=== PATIENT | female | born 1985 | race Caucasian/White ===

== ENCOUNTER 2016-06-29 23:35 | Emergency (ER) | payer SELFPAY ==
[2016-06-30] MEDS ORDERED: Oxycodone/Acetaminophen 5/325 mg Tab PO STA (00:04)
--- NOTE | 2016-06-30 00:04 | C.PDOC ---
History Of Present Illness 30 y/o female with chronic h/o of anxiety and Sciatica presents to ER requesting percocet and valium. Pt states she usually takes these meds but ran out since she's been here 1 month for her fathers longer than planned. Denies new injury, weakness, numbness or incontinence of bladder and bowel Time Seen by Provider: 06/29/16 23:59 Chief Complaint (Nursing): Lower Extremity Problem/Injury History Per: Patient History/Exam Limitations: no limitations Onset/Duration Of Symptoms: Other (chronic ) Current Symptoms Are (Timing): Still Present Severity: Moderate Past Medical History Vital Signs: Last Vital Signs Temp 98.5 F 06/29/16 23:40 Pulse 110 H 06/29/16 23:40 Resp 16 06/29/16 23:40 BP 135/89 06/29/16 23:40 Pulse Ox 99 06/30/16 00:18 - Medical History PMH: Anxiety Family History: States: Unknown Family Hx - Social History Hx Alcohol Use: No Hx Substance Use: No - Immunization History Hx Influenza Vaccination: Yes Hx Pneumococcal Vaccination: Yes Review Of Systems Constitutional: Negative for: Fever Gastrointestinal: Negative for: Vomiting, Abdominal Pain Musculoskeletal: Positive for: Back Pain Neurological: Negative for: Weakness, Numbness Psych: Positive for: Anxiety. Negative for: Suicidal ideation Physical Exam - Physical Exam Appears: Well, Non-toxic, Other (obese) Skin: Normal Color Oral Mucosa: Moist Chest: Symmetrical, No Tenderness Cardiovascular: Rhythm Regular Respiratory: Normal Breath Sounds Gastrointestinal/Abdominal: Normal Exam, Soft, No Tenderness Back: No CVA Tenderness, No Decreased ROM, No Muscle Spasm, Paraspinal Tenderness (lumbar), No Straight Leg Raising Extremity: Bilateral: Atraumatic, Normal Color And Temperature Pulses: Left Dorsalis Pedis: Normal, Right Dorsalis Pedis: Normal Neurological/Psych: Oriented x3, Normal Motor, Normal Sensation Gait: Steady ED Course And Treatment O2 Sat by Pulse Oximetry: 99 Pulse Ox Interpretation: Normal Progress Note: Pt states that her PMD is in [place] where she also follows for pain management- Pt states she might return to [place] in 1 week and is requesting meds to last her for 1 week. I explained to pt that I would treat her pain now with 1 percocet and valium, however no prescription will be given. Advised OTC motrin or aleve. Pt is fully ambulatory at discharge Disposition Counseled Patient/Family Regarding: Diagnosis - Disposition Referrals: [facility] [Outside] Disposition: HOME/ ROUTINE Disposition Time: 00:14 Condition: STABLE Additional Instructions: Please follow up with PMD Return to ER if worse Instructions: Chronic Pain (ED) - Clinical Impression Clinical Impression: Sciatica, Chronic pain
[2016-06-30 00:06] VITALS: BP 135/89; PULSE 110; RESP 16; TEMP 98.5; O2SAT 99
[2016-06-30] MEDS ORDERED: Oxycodone/Acetaminophen 5/325 mg Tab ONE (00:09)
== END 2016-06-30 00:24 | disposition home or self-care (01) ==
LOC: C.ER 23:35
DX: M54.30 Sciatica, unspecified side (principal); G89.29 Other chronic pain